=== PATIENT | male | born 1960 | race Caucasian/White ===

== ENCOUNTER → 2018-06-10 10:19 | Outpatient (CLI) | payer OTHER, SELFPAY ==
--- NOTE | 2018-06-10 10:24 | XR_ITS ---
EXAM: XR cervical spine 5V HISTORY: ITS.REASON: NECK PAIN ORDERING PHYSICIAN: Derek Redd MD PATIENT AGE: 57 years COMPARISON: None FINDINGS: There is slight reversal of the cervical lordosis with 3 mm anterolisthesis of C2 on C3. There is degenerative disc disease at C3-C4 is and C4-C5. Mild foraminal narrowing is noted on the left at C4/C5. Facet arthritic changes noted from C3 to C7. No fracture or dislocation. No lytic or blastic change. No evidence of cervical rib IMPRESSION: Cervical spondylosis with reversal lordosis and degenerative disc disease with facet arthritic change
== END ==
PROVIDERS: PCP Family Medicine; Visit Provider Family Medicine
DX: M54.2 Cervicalgia (principal)
CPT/HCPCS: 72050

== ENCOUNTER → 2019-02-05 14:58 | Outpatient (POV) | payer OTHER, SELFPAY | DX: Z00.00 Encounter for general adult medical examination without abnormal findings (principal) ==

== ENCOUNTER 2020-07-13 13:10 | Emergency (ER) | payer OTHER, SELFPAY ==
[2020-07-13] VITALS (9 sets, daily range): BP systolic 85–134; BP diastolic 46–75; PULSE 71–98; RESP 10–20; TEMP 35.2; O2SAT 96–100; BMI 30.7
--- NOTE | 2020-07-13 13:12 | PC.NURSE ---
Trauma Alert called overhead, ER notified of trauma alert
--- NOTE | 2020-07-13 13:15 | PC.NURSE ---
ELIANA BENITO at
--- NOTE | 2020-07-13 13:18 | XR_ITS ---
PROCEDURE: XR CHEST PORTABLE CLINICAL HISTORY: Trauma Alert Pain following injury COMPARISON: CR CXR CHEST(2 VIEWS-NOT PORTABLE) from 06/12/2016 FINDINGS: Endotracheal tube tip is in good position 5 cm above the tomas. Unremarkable cardiovascular structures. The lungs are clear No acute bony abnormalities. IMPRESSION: ET tube tip is in good position otherwise negative Dictated by: Raymond Redmond MD 07/13/2020 14:40 Raymond Redmond MD in [place] 07/13/2020 14:40
--- NOTE | 2020-07-13 13:22 | PC.NURSE ---
Called [facility] for flight status. they will return call.
--- NOTE | 2020-07-13 13:22 | PC.NURSE ---
calling [id number] at this time.
--- NOTE | 2020-07-13 13:25 | PC.NURSE ---
[facility] accepted flight. ETA 10 mins
--- NOTE | 2020-07-13 13:25 | XR_ITS ---
PROCEDURE: XR PELVIS 1-2V CLINICAL INDICATION: trauma alert Pain COMPARISON: No exams were available for comparison TECHNIQUE: XR Pelvis AP View FINDINGS: No fracture or dislocation is evident. Mild osteoarthritic changes of the hips. There is [place] catheter present. Small sclerotic focus overlies the right ilium medially nonspecific. No lytic or blastic change. IMPRESSION: As above, no acute finding Dictated by: Raymond Redmond MD 07/13/2020 14:39 Raymond Redmond MD in [place] 07/13/2020 14:39
--- NOTE | 2020-07-13 13:32 | PC.NURSE ---
1325- [facility] called stating [facility] accepted transfer and ETA is 12 minutes.
--- NOTE | 2020-07-13 13:33 | PC.NURSE ---
Dr Centeno speaking with Dr Houser.
--- NOTE | 2020-07-13 13:34 | HMH.EDGENADL ---
ED Disposition Clinical Impression: Head injury due to trauma Qualifiers: Encounter type: initial encounter Qualified Code(s): S09.90XA - Unspecified injury of head, initial encounter Skull fracture Qualifiers: Encounter type: initial encounter Skull bone/location: unspecified skull bone Fracture type: open Qualified Code(s): S02.91XB - Unspecified fracture of skull, initial encounter for open fracture Disposition: Xfer Short-Term Hosp Condition on Discharge: Critical Referrals: PCP,No [Primary Care Provider] - Forms: Transfer Record - ED - Critical Care Critical Care Time: Yes Attestation: On , the high probability of a clinically significant, sudden or life threatening deterioration of the following system(s) required my full and direct attention, intervention and personal management. The time I documented below is in addition to time spent performing reported procedures but includes the following listed in this critical care notation. Total Critical Care Time: 30 Vital system(s) involved:: Central Nervous System My critical care processes included: Assessment & monitoring of V/S, Initial and Re-exams, Data Review/Interpretation, Coordinating Care, Documentation Medical Decision Making - Philippe Inquiry Pt receiving controlled substance: Yes Philippe was queried for this patient: No Reason not queried -: Emergent pt cond-no time Risks and benefits of using a controlled substance: were not discussed with pt by me - Lab Data Lab Results 07/13/20 : Urine Color Yellow, Urine Appearance Clear, Urine pH 6.0, Ur Specific [place] 1.025, Urine Protein 1+, Urine Glucose (UA) 3+, Urine Ketones Negative, Urine Blood Trace-i, Urine Nitrate Negative, Urine Bilirubin Negative, Urine Urobilinogen 0.2, Ur Leukocyte Esterase Negative, Urine RBC 5-10, Urine WBC 5-10, Urine Bacteria Trace, Hyaline Casts 5-10, Fine Granular Casts 5- 0 - Radiology Data #1 Image(s): Chest, Pelvis Image Reviewed: Yes I reviewed the patient's radiology image Chest x-ray shows good position of endotracheal tube. No pneumothorax seen. Pelvis: no fracture or dislocation seen. - Physician Consults Physician Consulted: Elizabeth [facility] trauma team Time: 13:35 Reason -: Transfer to another facilty Comment/Response: Accepts patient for transfer. He will be transferred by helicopter to their emergency department. He will be transferred expeditiously, defer any scans until arrival at that facility. Chest x-ray and pelvis x-ray requested. Accepting doctor - Dr. Ruiz Medical Decision Narrative: Spoke with who is present. She says the last time that she saw him prior to finding him today was at about 4 AM. She says she thinks he fell at least a couple of steps into the garage. He may have hit his head on a safe or concrete. She also says that he has a living will with a DNR. I have informed her that he is already intubated for airway protection and that further decisions on his care will need to be made at [facility]. At this point he will remain intubated for transfer to the trauma center and she is in agreement with that. General Adult HPI - General Stated complaint: fall, ETOH, minimal responsiveness Time Seen by Provider: 07/13/20 13:10 - History of Present Illness HPI narrative: The patient arrives by ambulance unresponsive. History given to me as relayed by EMS. Apparently got up today and could not find him and went looking for him. Found him in the garage 2 blocks of bottles of alcohol around. Apparent head injury with blood at the scene a scalp laceration on the right side, it is thought he may have fallen and hit his head on a large metal safe. It is unknown how long the patient has been down prior to being found. - Related Data Home Medications Medication Instructions Recorded Confirmed losartan 50 mg-hydrochlorothiazide 1 tab PO ONCE 08/23/17 03/26/20 12.5 mg tablet metoprolol ta
--- NOTE | 2020-07-13 13:37 | PC.NURSE ---
[facility] has lifted and will be here in approx 10 mins
--- NOTE | 2020-07-13 13:51 | PC.NURSE ---
[facility] here at this time.
--- NOTE | 2020-07-13 13:57 | PC.NURSE ---
report given to Etienne Pugh RN at ER at this time
--- NOTE | 2020-07-13 14:00 | PC.NURSE ---
report given to [facility]
[2020-07-13 14:12] LABS: Microscopic, Urine URINE MICROSCOPIC (MICROSCOPIC)
[2020-07-13 14:15] LABS: Appearance,Urine CLEAR (Clear); Bilirubin,Urine Negative (Negative); Blood, Urine TRACE-I (Negative); Color,Urine YELLOW (Yellow); Glucose,Urine (UA) 3+ (Negative); Ketones,Urine Negative (Negative); Leukocyte Esterase,Urine Negative (Negative); Nitrate,Urine Negative (Negative); Protein,Urine 1+ (Negative); Specific Gravity, Urine 1.025 (1.005-1.030); Urobilinogen,Urine 0.2 EU/dl (0.2)
[2020-07-13 15:03] LABS: Bacteria,Urine Trace /lpf
[2020-07-13 18:11] LABS: POC Glucose,Bedside 137 (70-110)
== END 2020-07-13 14:00 | disposition short-term general hospital (02) ==
PROVIDERS: Emergency Provider Emergency Medicine
DX: S02.91XB Unspecified fracture of skull, initial encounter for open fracture (principal); F10.10 Alcohol abuse, uncomplicated; I10 Essential (primary) hypertension; Z87.891 Personal history of nicotine dependence; W10.9XXA Fall (on) (from) unspecified stairs and steps, initial encounter; Y92.015 Private garage of single-family (private) house as the place of occurrence of the external cause
CPT/HCPCS: 31500; 71045; 72170; 81001; 82962; 96365; 96375; 99284